=== PATIENT | female | born 1970 | race Caucasian/White ===

== ENCOUNTER 2022-05-30 09:12 | Emergency (ER) | payer MEDICAID, OTHER ==
[~2022-05-30] VITALS: Ht 165.1 cm; Wt 68.0 kg
[2022-05-30] MEDS ORDERED: IBUPROFEN 600MG TABLET PO ONE (10:00)
[2022-05-30] MEDS ORDERED: LORAZEPAM 0.5MG TABLET PO ONE (10:15)
[2022-05-30] MEDS ORDERED: IBUP-2029 MT (11:11)
[2022-05-30 11:28] VITALS: BP 144/80
== END 2022-05-30 11:49 | disposition home or self-care (01) ==
LOC: ER 09:46
DX: S40.011A Contusion of right shoulder, initial encounter (principal); E11.9 Type 2 diabetes mellitus without complications; V09.9XXA Pedestrian injured in unspecified transport accident, initial encounter; Y93.89 Activity, other specified; Y92.89 Other specified places as the place of occurrence of the external cause; Y99.8 Other external cause status
CPT/HCPCS: 73030; 99283; A4565